=== PATIENT | female | born 1995 | race Hispanic/Latino ===

== ENCOUNTER 2021-10-10 17:37 | Emergency (ER) | payer SELFPAY ==
[2021-10-10] MEDS ORDERED: Ketorolac Tromethamine 30 MG/ML VIAL ONE (18:29)
[2021-10-10] MEDS ORDERED: Metoclopramide HCl 10 MG TAB ONE (18:29)
== END 2021-10-10 19:00 | disposition home or self-care (01) ==
LOC: CSHERS 17:37
DX: G44.209 Tension-type headache, unspecified, not intractable (principal); F17.290 Nicotine dependence, other tobacco product, uncomplicated
CPT/HCPCS: 96372; 99283; J1885